=== PATIENT | female | born 1975 | race Caucasian/White ===

== ENCOUNTER 2020-03-02 13:22 | Outpatient (CLI) | payer OTHER, SELFPAY ==
--- NOTE | ~2020-03-02 | MM_ITS ---
EXAMINATION: MM diagnostic dain RT w [place] HISTORY: Six-month follow-up for probably benign right breast calcifications TECHNIQUE: Craniocaudal, mediolateral, and mediolateral oblique 3-D tomosynthesis images of the right breast were performed and synthetic 2-D images were generated. Magnification views are also obtained . CAD analysis was submitted and interpreted. COMPARISON: 08/27/2019, 07/25/2019 BREAST PARENCHYMAL COMPOSITION: There are scattered areas of fibroglandular density. FINDINGS: There is stable grouped calcifications in the posterior third of the upper outer quadrant o f the breast at the 11:00 location 9 cm from the nipple. The calcifications appear to be slightly jennyfer rphous on the craniocaudal view and more linear on the mediolateral view. No suspicious mass or archi tectural distortion are identified. IMPRESSION: 1. Stable, probably benign right breast calcifications. 2. Recommend 6 month follow-up right diagnostic mammogram BI-RADS category 3, probably benign findings. Reviewed, dictated and finalized at location A.
== END 2020-03-02 13:23 | disposition home or self-care (01) ==
LOC: ANHIMG 13:27
PROVIDERS: PCP Internal Medicine; Visit Provider Obstetrics & Gynecology
DX: R92.8 Other abnormal and inconclusive findings on diagnostic imaging of breast (principal)
CPT/HCPCS: 77061; 77065; G0279

== ENCOUNTER 2022-06-27 22:49 | Emergency (ER) | payer OTHER, SELFPAY ==
--- NOTE | ~2022-06-27 | CT_ITS ---
EXAMINATION: CT abdomen pelvis w con DATE: 06/28/2022 01:28 INDICATION: Left abdominal pain. TECHNIQUE: Computed tomography (CT) of the abdomen and pelvis was performed with 100 mL Omnipaque 350 intravenous contrast. Automated exposure control and iterative reconstruction technique were employe d. The dose-length product was 355.20 mGy-cm. COMPARISON: None. FINDINGS: The visualized portions of the lung bases demonstrate mild atelectasis. No pleural effusion . The heart size is normal. No pericardial effusion. There is periportal edema in the liver. There is a 2.6 cm cyst in the liver. The gallbladder is absent. The spleen, pancreas, adrenal glands, and rig ht kidney are normal. There is a 2.2 cm cyst in left kidney. There is an intrauterine device in expec jacob position. There are no dilated loops of bowel. The appendix is normal. There are no pathologicall y enlarged lymph nodes. There is no free intraperitoneal fluid. 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 There is 16 mm anterolisthesis of L5 on S1. There is severe lower lumbar spondylosis. There i s mild chronic anterior wedging of multiple thoracic vertebral bodies. IMPRESSION: 1. No specific etiology for the patient's symptoms. Reviewed, dictated and finalized at location A.
[2022-06-27 22:52] VITALS: BP 127/86; PULSE 90; RESP 18; TEMP 36.8; O2SAT 96
--- NOTE | 2022-06-27 23:00 | ED.ABDPAIN ---
HPI - Abdominal Pain General Chief Complaint: Abdominal Pain Stated Complaint: ABD PAIN/NAUSEA History of Present Illness HPI narrative: This is a 47-year-old female with past medical history of cholelithiasis status post cholecystectomy, who presents emergency department complaining of left-sided abdominal pain beginning this evening. The patient states she was standing in her kitchen, shortly after eating, when she felt sudden onset left-sided abdominal pain, described as cramping, severe without radiation. This was associated with some numbness and dysuria for the past day. She has not felt the pain like this before. She denies vomiting and has no other complaints. In route, the patient received 75 mcg of fentanyl and 4mg of Zofran IV. She states her pain improved. Related Data Allergies Allergy/AdvReac Type Severity Reaction Status Date / Time No Known Allergies Allergy Verified 06/28/22 02:31 Review of Systems Review of Systems: CONSTITUTIONAL: Denies fever, chills, or sweats. EYES: Denies visual changes, redness, or discharge. ENT: Denies rhinorrhea, congestion, sore throat, or otalgia. CARDIOVASCULAR: Denies chest pain, palpitations, or edema. RESPIRATORY: Denies cough or dyspnea. GASTROINTESTINAL: Abdominal pain, nausea denies vomiting, or diarrhea. GENITOURINARY: Dysuria denies hematuria. SKIN: Denies rash or itching. MUSCULOSKELETAL: Denies back pain, joint pain, or myalgia. NEUROLOGIC: Denies headache, numbness, dizziness, or weakness. PSYCHIATRIC: Denies anxiety or depression. PMFSH Past Medical History Medical History (Updated 06/28/22 @ 07:46 by Kain Starkey MD) Cholelithiasis Surgical History Surgical History (Updated 06/28/22 @ 07:46 by Kain Starkey MD) Hx of cholecystectomy Social History Social History (Updated 06/28/22 @ 07:47 by Kain Starkey MD) Smoking status: Former smoker Alcohol intake: current Substance use: never Exam Narrative: GENERAL: Well-developed, well-nourished, and in no acute distress. HEAD: Normocephalic, atraumatic. EYES: PERRLA and EOMI. ENT: Nares clear, no rhinorrhea or epistaxis. Mucous membranes moist. Oropharynx without tonsillar hypertrophy exudate or other lesions. NECK: Supple. No adenopathy or masses. No carotid bruits or JVD CHEST: Clear to auscultation. No respiratory distress. No wheezes rales or rhonchi HEART: Regular rate and rhythm. No murmur heard. Normal peripheral pulses. ABDOMEN: Soft, mild tenderness to deep palpation in the left upper quadrant without rebound, nondistended, normal active bowel sounds. Mild left CVA tenderness to palpation EXTREMITIES: Normal range of motion. No edema. SKIN: Warm, dry, no rash. NEURO: No focal deficits. Alert and oriented x3. PSYCH: Normal mood and affect. Course Course Emergency Course: : - CBC unremarkable. Chemistries unremarkable. UA shows leukocyte esterase though may be contaminated. In the presence of symptoms will treat for UTI. STAT Rad -CT abdomen pelvis for any acute findings. There is an incidental 2.9 x 2.7 cm cyst on segment 3 of the liver. Reassessed patient. She states she feels improved. As findings, patient is comfortable with discharge. Discussed return emergency precautions including signs/symptoms of sepsis and acute abdomen. The patient voiced understanding and is comfortable with the plan. All questions answered to her satisfaction. Vital Signs Vital signs: Vital Signs Temperature 98.2 F 06/27/22 22:52 Pulse Rate 90 06/27/22 22:52 Respiratory Rate 18 06/27/22 22:52 Blood Pressure 127/86 06/27/22 22:52 Pulse Oximetry 96 06/27/22 22:52 Oxygen Delivery Room Air 06/27/22 22:52 Temperature 98.2 F 06/27/22 22:52 Pulse Rate 90 06/27/22 22:52 Respiratory Rate 18 06/27/22 22:52 Blood Pressure 127/86 06/27/22 22:52 Pulse Oximetry 96 06/27/22 22:52 Oxygen Delivery Room Air 06/27/22 22:52 MDM - Abdominal
[2022-06-27] MEDS: SODIUM CHLORIDE 0.9% IV 1,000 ML 999 ML IV CONT (23:20)
[2022-06-27 23:29] LABS: Basophils Absolute Auto 0.1 K/mm3 (0.0-0.1); Basophils Percent Auto 0.7 % (0.2-1.2); Eosinophils Absolute Auto 0.4 K/mm3 (0-0.3); Eosinophils Percent Auto 4.9 % (0-4.4); Hematocrit 37.1 % (37.0-47.0); Hemoglobin 12.2 g/dL (12.0-15.0); Immature Granulocyte Absolute 0.01 K/mm3 (0.00-0.031); Immature Granulocyte Percent A 0.1 % (0-0.5); Lymphocytes Absolute Auto 2.24 K/mm3 (0.9-3.2); Lymphocytes Percent Auto 31.2 % (18.3-44.2); Mean Corpuscular HGB Conc 32.9 g/dl (32-36); Mean Corpuscular Hemoglobin 32.8 pg (26-34); Mean Corpuscular Volume 99.7 fl (80-100); Mean Platelet Volume 10.3 fl (7.4-10.4); Monocytes Absolute Auto 0.9 K/mm3 (0.1-0.6); Monocytes Percent Auto 12.3 % (2.6-8.5); Neutrophils Absolute Auto 3.6 K/mm3 (1.3-6.7); Neutrophils Percent Auto 50.8 % (45.5-73.1); Platelet Count Result 262 k/mm3 (150-375); Red Blood Count 3.72 M/mm3 (4.2-5.4); Red Cell Distribution Width 12.2 % (11.5-14.5); White Blood Count 7.2 K/mm3 (4.5-10.0)
[2022-06-27 23:41] LABS: Add Urine Microscopic? YES; Appearance Urine Cloudy (Clear); Bilirubin Urine Negative (Negative); Blood Urine Negative (Negative); Color Urine Yellow (Yellow); Glucose Urine UA Negative (Negative); Ketones Urine Negative (Negative); Leukocyte Esterase Ur 2+ LEU/UL (Negative); Mucus Urine Rare /lpf; Nitrate Urine Negative (Negative); Protein Urine Negative (Negative); Specific Grav Ur 1.024 (1.001-1.035); Squamous Epithelial Cell Urine Many /hpf (Few); Urobilinogen Urine Negative mg/dL (<2.0)
[2022-06-28 00:43] LABS: Alanine Aminotransferase 26 U/L (6-35); Albumin Level 3.8 g/dL (3.5-5.1); Alkaline Phosphatase 68 U/L (38-126); Anion Gap 10 mmol/L (8-16); Aspartate Amino Transferase 33 U/L (14-36); Bilirubin,Total 0.3 mg/dL (0.2-1.3); Blood Urea Nitrogen 11 mg/dL (7-17); Calcium 8.1 mg/dL (8.4-10.2); Carbon Dioxide 23 mmol/L (22-30); Chloride 107 mmol/L (98-107); Estimated CRCL calculation 93 ml/min; Estimated Glomerular Filt Rate > 60; Glucose 103 mg/dL (65-110); Lipase 111 U/L (23-300); Potassium 3.4 mmol/L (3.4-5.0); Sodium 140 mmol/L (137-145)
== END 2022-06-28 03:39 | disposition home or self-care (01) ==
PROVIDERS: Emergency Provider Preventive Medicine Aerospace Medicine; PCP Internal Medicine
DX: N39.0 Urinary tract infection, site not specified (principal); R10.12 Left upper quadrant pain; Z87.891 Personal history of nicotine dependence
CPT/HCPCS: 36415; 74177; 80053; 81001; 83690; 85025; 96360; 99284; J7030; Q9967